=== PATIENT | female | born 1960 | race Caucasian/White ===

== ENCOUNTER 2020-07-20 04:02 | Outpatient (CLI) | payer BC, SELFPAY ==
[2020-07-21 16:42] LABS: COVID-19 RT-PCR UVMMC Result Negative (Negative)
== END 2020-07-20 04:22 ==
PROVIDERS: PCP Nurse Practitioner Adult Health; Visit Provider Student in an Organized Health Care Education/Training Program
DX: Z11.52 Encounter for screening for COVID-19 (principal); Z01.818 Encounter for other preprocedural examination
CPT/HCPCS: U0003

== ENCOUNTER 2020-07-25 06:23 | Day surgery (SDC) | payer BC, SELFPAY ==
[2020-07-25 06:33] VITALS: BP 121/73; PULSE 70; RESP 16; TEMP 36.6; O2SAT 100
[2020-07-25] MEDS: Lactated Ringers 1,000 ML 80 ML IV (07:00)
[2020-07-25 07:05] VITALS: BP 79/39; PULSE 51; RESP 16
[2020-07-25 07:10] VITALS: BP 56/30; PULSE 38; RESP 16
[2020-07-25] MEDS: Glycopyrrolate 0.2 MG/1 ML VIAL (07:10)
--- NOTE | 2020-07-25 07:17 | NUR.NOTE ---
C/O feeling lightheaded at 0710. Dr. Gilmore and anesthesia in attendance. Decreased HR and BP noted (HR 38, BP 56/30. Reclined in chair. Glycopyrolate 0.2 mg IV and 5 of ephedrine given by anesthesia with good effect... HR 70 and bp 96/54 with resolving symptoms. Nursing Note:
--- NOTE | 2020-07-25 07:18 | W.PM.DSUDISC ---
Documented by User: Bianka Mathews 07/25/20 07:22 Discharge Plan Disposition Patient Disposition: HOME Condition: Good Discharge Details Reason For Visit: Left DeJordanrvdaxa's tenosynovitis Attending Provider: Brenden Gilmore Primary Care Provider: Alicia Munguia Home Meds and New Rx's Prescriptions: New acetaminophen 500 mg tablet 500 mg PO Q6H PRN (Reason: pain) Qty: 60 RF: 2 ibuprofen 600 mg tablet 600 mg PO TID PRN (Reason: pain) Qty: 60 RF: 1 Continued diphenhydramine HCl 25 mg Tablet 25 mg PO HS RF: 0 Discharge Instructions Additional Instructions: Darcieain's Discharge Instructions Activity: You should keep the hand elevated as much as possible for the first few days. You may use the other fingers as tolerated but avoid trying to do too much too soon. You may perform light activities with the dressing in place. Dressing/Cast: Your dressing splint should stay in place at all times. Do NOT get it wet. You may loosen the JUAN MANUEL wrap if you feel it is too tight and then rewrap more loosely. Keep this on until your follow-up appointment. If it gets wet, a new dressing may be applied, but you should call Dr. Gilmore or his office. Medications: - You should take Tylenol and Ibuprofen for baseline pain control. These meds were called in but you do not have to pick these up but instead just use over the counter Tylenol and Ibuprofen. - You may apply ice over the thumb. Follow-up: 7 days If you have any acute concerns or questions, please do not hesitate to contact the office at [phone]. You may contact Dr. Gilmore with any questions after hours through the hospital at [phone] or on his cell phone at [phone]. Referrals: Brenden Gilmore MD [ [facility] STAFF PHYSICIAN] - Equipment/Supplies: Splint Activity:: Elevate Remove Dressings/Wound Care:: Do Not Remove Shower/Bathe:: 72 hours and Cover Diet:: As Tolerated Discharge Orders Discharge Orders: Discharge Order (Routine); Ordered 07/25/20 Ordered By: Bianka Mathews DS: Diagnosis Discharge Diagnosis (1) De Quervain's tenosynovitis, left: Status: Acute Documented by User: Brenden Gilmore MD 07/25/20 07:28 Discharge Plan Disposition Patient Disposition: HOME Condition: Good Discharge Details Reason For Visit: Left DeQuervdaxa's tenosynovitis Attending Provider: Brenden Gilmore Primary Care Provider: Alicia Munguia Home Meds and New Rx's Prescriptions: New acetaminophen 500 mg tablet 500 mg PO Q6H PRN (Reason: pain) Qty: 60 RF: 2 ibuprofen 600 mg tablet 600 mg PO TID PRN (Reason: pain) Qty: 60 RF: 1 Continued diphenhydramine HCl 25 mg Tablet 25 mg PO HS RF: 0 Discharge Instructions Additional Instructions: Shamir'tana Discharge Instructions Activity: You should keep the hand elevated as much as possible for the first few days. You may use the other fingers as tolerated but avoid trying to do too much too soon. You may perform light activities with the dressing in place. Dressing/Cast: Your dressing splint should stay in place at all times. Do NOT get it wet. You may loosen the JUAN MANUEL wrap if you feel it is too tight and then rewrap more loosely. Keep this on until your follow-up appointment. If it gets wet, a new dressing may be applied, but you should call Dr. Gilmore or his office. Medications: - You should take Tylenol and Ibuprofen for baseline pain control. These meds were called in but you do not have to pick these up but instead just use over the counter Tylenol and Ibuprofen. - You may apply ice over the thumb. Follow-up: 7 days If you have any acute concerns or questions, please do not hesitate to contact the office at [phone]. You may contact Dr. Gilmore with any questions after hours through the hospital at [phone] or on his cell phone at [phone]. Referrals: Brenden Gilmore MD [ [facility] STAFF PHYSICIAN] - Equipment/Supplies: Splint Activity:: Elevate Remove Dressings/Wound Care:: Do Not Remove Shower/Bathe:: 72 hours and Cover Diet:: As Tolerated Discharge Orders Discharge Orders: Discharge Order (Routine); Ordered 07/25/20 Ordered By: Bianka Mathews
[2020-07-25 07:20] VITALS: BP 96/54; PULSE 70; RESP 16
[2020-07-25] MEDS: ceFAZolin 2 GM/50 ML BAG IVPB (07:40)
[2020-07-25] MEDS: Sodium Bicarbonate 50 MEQ/50 ML VIAL (07:50)
[2020-07-25 08:40] VITALS: BP 105/60; PULSE 57; RESP 16; TEMP 36.5; O2SAT 100
--- NOTE | 2020-07-25 20:21 | ROE_ITS ---
Date of service: 07/25/20 Time of Service: 08:41 Operative Note Operative Note DATE OF PROCEDURE: 07/25/20 PRE-OP DIAGNOSIS: Left Dequervain's Tenosynovitis POST-OP DIAGNOSIS: same PROCEDURE: Left First Extensor Compartment Release SURGEON: Brenden Gilmore ANESTHESIA: MAC ESTIMATED BLOOD LOSS: 5 PATHOLOGY: none sent TOURNIQUET TIME: 0 COMPLICATIONS: None Patient was transported to: same day Patient's condition: stable Indications: Jessie is a 60 year old female who has had symptoms of Dequervain's tenosynovitis. Nonoperative treatment options had been trialed. Given their failure, I offered operative intervention. I reviewed the technical details of a first extensor compartment release. I reviewed the risk of the procedure to include bleeding, infection, pain, stiffness, tendon instability, damage to the superficial radial nerve, and complete release. Despite these risks, the patient elected to proceed. Findings: There was a tightened first extensor compartment. There was one subcompartment which was released as well. Some tendon fraying was encountered on EPB which was debrided sharply. Procedure Description: Jessie was greeted in the preoperative holding area. Name and surgical site were confirmed. The history and physical was completed. The consent was reviewed the patient and signed. Jessie was taken back to the operating room. The patient was placed in the supine position and monitored anesthesia care was initiated. The left was then prepped with ChloraPrep and draped in a standard fashion. No tourniquet was utilized. Prophylactic antibiotics in the form of cefazolin were administered. A timeout was performed for safe surgery. The surgical site was drawn on the skin. The planned surgical field was anesthetized with 1% Lidocaine with epinephrine and buffered with sodium bicarbonate. A 2 cm incision was made longitudinally over the radial styloid. The skin was incised only. The deep tissue and subcutaneous fat was dissected with a tenotomy scissors trying to protect branches of the superficial radial nerve. Any branches that were identified were retracted out of the way. The first compartment extensor tendons were then identified. The distal aspect of the first compartment was noted and were released. This release was performed more on the dorsal side to prevent tendon subluxation. The entirety of the first extensor compartment was then released. The slips of the abductor paul licis longus tendon were inspected. They were removed to confirm the appropriate motion of the thumb. The extensor pollicis brevis tendon was then identified. It was housed in a separate and very tight subcompartment. It was fully released. Traction on the tendon was also used to confirm appropriate extension of the thumb confirming the release of the appropriate tendon. The EPB tendon had some fraying which corresponded to the distal extent of the compartment. This fraying was debrided sharply with tenotomy scissors. The dorsal radial surface of the radius was once again inspected to make sure there is no other sub-compartments or other restrictions to tendon motion. The wound was then thoroughly irrigated. The deep tissue was closed with a 3-0 Vicryl. The skin was closed with a running subcuticular 4-0 Monocryl. Skin glue was applied. The tourniquet is released without significant bleeding. The hand was dressed with 4 x 4's, Kerlix and JUAN MANUEL wrap. All counts were correct. Patient was transferred back to same day surgery area in stable condition.
== END 2020-07-25 09:23 | disposition home or self-care (01) ==
PROVIDERS: PCP Nurse Practitioner Adult Health; Visit Provider Student in an Organized Health Care Education/Training Program
PROC: (CPT 25000; principal; 2020-07-25 07:30)
DX: M65.4 Radial styloid tenosynovitis [de Quervain] (principal)
CPT/HCPCS: 25000; J0690